=== PATIENT | male | born 1965 | race Caucasian/White ===

== ENCOUNTER 2024-02-22 04:55 | Emergency (ER) | payer MEDICAID ==
[~2024-02-22] VITALS: Ht 185.4 cm; Wt 97.7 kg
[2024-02-22] MEDS: methylPREDNISolone sod succ 125mg/2ml vial IV ONE (05:01)
[2024-02-22] MEDS: ipratropium/albuterol 3ml nebule NEB ONE (05:04)
[2024-02-22] MEDS: albuterol 2.5 MG/3 ML nebule CONTNEB PRN (05:04)
[2024-02-22 05:05] VITALS: PULSE 89; RESP 26; O2SAT 91
[2024-02-22] MEDS ORDERED: PRED20TA PO (05:35)
[2024-02-22] MEDS ORDERED: ALBU18HF2 IH (05:35)
[2024-02-22 06:33] VITALS: PULSE 81; RESP 19; O2SAT 95
[2024-02-22 06:39] VITALS: TEMP 98.3
[2024-02-22 11:26] VITALS: BP 134/78; PULSE 76; RESP 22; O2SAT 94
== END 2024-02-22 11:20 | disposition home or self-care (01) ==
LOC: ER 04:57
DX: J45.909 Unspecified asthma, uncomplicated (principal); Z79.899 Other long term (current) drug therapy; Z79.52 Long term (current) use of systemic steroids
CPT/HCPCS: 94644; 96374; 99285; J2919; 94640; 94760; A7015